=== PATIENT | female | born 1965 | race Caucasian/White ===

== ENCOUNTER 2025-04-28 22:10 | Emergency (ER) | payer OTHER, SELFPAY ==
[2025-04-28 22:59] VITALS: BP 178/82; PULSE 73; RESP 20; TEMP 36.8; O2SAT 94; BMI 30.2
--- NOTE | 2025-04-29 01:13 | ED.HEATRA ---
HPI - Head Injury General Chief complaint: Head Injury Stated complaint: headche; dizziness Time Seen by Provider: 04/29/25 01:11 Source: patient Mode of arrival: ambulatory Limitations: no limitations History of Present Illness ED Provider: HPI Narrative: Patient was healthy apparently was getting up after bending down and hit the back of the head to the open door of the freezer no loss of consciousness since then patient has been complaining of mild dizziness and headache no vomiting no seizures no memory loss Related Data Allergies Allergy/AdvReac Type Severity Reaction Status Date / Time No Known Allergies Allergy Verified 04/28/25 23:02 Review of Systems Review of Systems: Yes all other systems are reviewed and are negative [facility] Social History Social History Smoked in Last 30 Days: Yes Use of substances other than those prescribed or required for medical reasons: Yes Substance Use Type: Marijuana Substance Use Frequency: Daily Last Used Substance: Days (ago) Advance Directives: No Advance Directives Information Provided: Yes Patient : No Physical Exam Vital Signs: Vital Signs: Last Vital Signs Temp 97.7 F 04/29/25 01:45 Pulse 74 04/29/25 01:45 Resp 18 04/29/25 01:45 BP 177/85 H 04/29/25 01:45 Pulse Ox 93 04/29/25 01:45 O2 Del Method Room Air 04/29/25 01:45 BMI result Body Mass Index 30.2 Appearance: Alert. Oriented X3. No acute distress. Eyes: PERRLA, No Nystagmus HEENT: Pharynx normal. Oral Mucosa moist atraumatic normocephalic GUILHERME EAC clear Neck: Normal inspection. Neck supple. CVS: Normal heart rate and rhythm. Pulses normal. Respiratory: No respiratory distress. Equal air entry bilateral, no wheezing/rales/rhonchi Abdomen: Soft and nontender. Bowel sounds are present, no mass palpable, no CVA tenderness Skin: Skin warm and dry. Normal skin color. Normal skin turgor. Extremities: No lower extremity edema. No calf tenderness Neuro: Oriented X 3. No motor deficit. No sensory deficit.No cerebellar signs , cranial nerves II-XII intact Medications Administered Discontinued Medications Generic Name Dose Route Start Last Admin Trade Name Freq PRN Reason Stop Dose Admin Ibuprofen 600 mg 04/29/25 01:34 04/29/25 01:40 Ibuprofen 600 Mg Tablet PO 04/29/25 01:35 600 mg ONCE ONE Administration Medical Decision Making Medical Decision Making MDM Narrative: Patient after minor head injury no signs of intracranial involvement , GCS of 15 will give Tylenol/Motrin for headache Discharge Plan Discharge Clinical Impression: Closed head injury Patient Disposition: Home, Self-Care Instructions: Head Injury (ED) Additional Instructions: You had minor head injury Take Tylenol/Motrin for headache Report to the ER if vomiting/change in memory/seizure Interventions: ED Discharge Assessment Last Done: 04/29/25 01:45 Discharge Date/Time: 04/29/25 01:45 Print Language: Albanian
[2025-04-29 01:41] VITALS: BP 177/85; PULSE 74; RESP 18; TEMP 36.5; O2SAT 93
[2025-04-29 01:45] VITALS: BP 177/85; PULSE 74; RESP 18; TEMP 36.5; O2SAT 93
--- OUTSIDE RECORDS SUMMARY | 2025-04-29 01:53 | XMS_ITS | Clinical Summary ---
Author Organization [facility] [address] [facility] [address] Address [address] [place] [address] Phone Care Team Providers Care In Home Sales Consultant Name Role Phone Milly Garner MD Primary Care Provider Allergies No known active allergies Medications albuterol 2.5 mg /3 mL (0.083 %) nebulizer solution Inhale 3 mL (2.5 mg total) by mouth. 11/27/2020 Active albuterol HFA (PROAIR HFA ; PROVENTIL HFA ; VENTOLIN HFA) 90 mcg/actuation inhaler Inhale 2 puffs by mouth. 11/27/2020 Active budesonide-formo teroL (SYMBICORT) 80-4.5 mcg/actuation inhaler Inhale 2 puffs by mouth. 11/27/2020 Active emtricitabine-ri lpivirine-tenofo vir alafenamide (Odefsey) 200-25-25 mg per tablet Take 1 tablet by mouth. Active Active Problems Problem Noted Date Diagnosed Date Asthma 06/28/2024 AIDS (CMS/HCC V24, CMS/HCC V28) 06/28/2024 Overview (06/28/2024): Follows with Dr Chavez- on Odefsy Smoking 06/17/2022 Hilar mass 02/25/2019 Overview (06/28/2024): Rpt CXR was normal Colon polyp 12/12/2014 Chronic viral hepatitis C (CMS/HCC V24, CMS/HCC V28) 12/12/2014 Overview (06/28/2024): Completed 12 weeks of Epclusa- follows with Dr Perez Immunizations Name Administration Dates Next Due Influenza Quadravalent, MDCK , 0.5ml, preservative free (Flucelvax) 6mo and older 07/24/2023,05/19/2020 Influenza trivalent, with pr eservative (Fluzone; Afluria) 6mo and older 09/02/2021,07/04/2016,06/30/2015 Pneumococcal conjugate 13 va lent (Prevnar 13, PCV13) 2mo and older 06/30/2015 Tdap Tetanus diptheria acell ular pertussis (Boostrix; Adacel) 7yo and older 12/19/2016 Surgical History Surgery Date Site/Laterality Comments CHOLECYSTECTOMY PROCEDURE: LAPAROSCOPIC CHOLECYSTECT COLONOSCOPY 01/01/2016 PROCEDURE: HISTORICAL COLONOSCOPY; COMMENT: Normal colonoscopy, rpt in 5 years ( history of polyps COLONOSCOPY 2014 PROCEDURE: HISTORICAL COLONOSCOPY; COMMENT: Polyps at [facility] in [facility], report not available - told to repeat in 2 years Medical History Medical History Date Comments Aids (Cms/Hcc V24, Cms/Hcc V28) DX:AIDS ([facility]); COMMENT: diagnosed in 1998, started on meds in 2007 Asthma DX:Asthma Family history of ovarian cancer 12/12/2014 DX:Family history of ovarian cancer Colon polyp 12/12/2014 DX:Colon polyp Family History Medical History Relation Name Comments Stroke Father Breast cancer Mother Relation Name Status Comments Father Alive Mother Social History Tobacco Use Types Packs/Day Years Used Date Smoking Tobacco: Every Day Cigarettes Smokeless Tobacco: Never Alcohol Use Standard Drinks/Week Comments Yes 0 (1 standard drink = 0.6 oz pur e alcohol) Comments Unknown Sex and Gender Information Value Date Recorded Sex Assigned at Not on file Legal Sex Female 4:36 AM EST Gender Identity Not on file Sexual Orientation Not on file Obstetrics History Para Term AB IAB SAB Ectopic Multiple Livin g Live Births 1 09 18 1 Date Outcome GA Total Labor Labor/2nd/3rd Weight Sex Type Anes PTL Marylou A1 A5 Name Clin Term Last Filed Vital Signs Vital Sign Reading Time Taken Comments Blood Pressure 132/70 02/06/2024 12:03 PM EDT Pulse 94 02/06/2024 12:03 PM EDT Temperature - - Respiratory Rate - - Oxygen Saturation - - Inhaled Oxygen Concentration - - Weight 71.6 kg (157 lb 14.4 oz) 024 12:03 PM EDT Height 154.9 cm (5' 1 ) 02/06/2024 12:0 3 PM EDT Body Mass Index 29.83 02/06/2024 12:03 PM EDT Plan of Treatment Upcoming Encounters Date Type Department Care Team (Late st Contact Info) Description 11/18/2025 11:20 AM EST Appointment Radiology Department [address] [phone] Health Maintenance Due Date Last Done Comments Meningococcal ACWY Vaccine (1 - Risk 2-dose series) 1966 MMR Vaccines (1 of 2 - Risk 2-dose series) 1982 Pneumococcal Vaccine: 50+ Years (4 of 4 - PCV20 or PCV21) 08/08/2022 08/08/2017, 06/30/2015, 10/19/2011 Lung Cancer Screening (Low Dose CT) 08/27/2022 Social Influencers of Health Screening 08/27/2022 COVID-19 Vaccine ( season) 2024 07/26/2023, 11/26/2021, 01/04/2021, Additional history exists RSV Immunization Adult Patients (1 - Risk 60-74 years 1-dose series) 2024 Depression Screening 09/18/2024 Influenza Vaccine (#1) 2025 , 07/24/2023, 09/02/2021, Additional history exists Cervical Cancer Screening: HPV 08/04/2025 08/04/2020 Breast Cancer Screening 11/16/2026 11/17/19 25, 06/13/2024, 06/13/2024, Additional history exists DTaP,Tdap,and Td Vaccines (3 - Td or Tdap) 12/19/2026 12/19/2016, 10/19/2011 Cholesterol Screening (Lipid Panel) 06/17/2027 06/17/2022 Colorectal Cancer Screening: Colonoscopy 01/28/2028 01/27/2023 Hepatitis C Screening Completed 03/04/2016 Hepatitis A Vaccines Completed 06/14/2016, 01/12/2016, 12/08/2015 Hepatitis B Vaccines Completed 06/14/2016, 01/12/2016, 12/08/2015 Zoster Vaccines Completed 05/03/2022, 02/06/2018 HIB Vaccines Aged Out No longer eligi ble based on patient's age to complete this topic HPV Vaccines Aged Out No longer eligi ble based on patient's age to complete this topic IPV Vaccines Aged Out No longer eligi ble based on patient's age to complete this topic Meningococcal B Vaccine Aged Out No l onger eligible based on patient's age to complete this topic RSV Immunization Patients Under 20 months Aged Out No longer eligible based on patient's age to complete this topic Varicella Vaccines Aged Out No longer eligible based on patient's age to complete this topic Procedures Procedure Name Priority Date/Time Associated Diagnosis Comments MG MAMMO DIGITAL SCREENING W RUI BILAT Routine 11/16/2024 11:08 AM EST Encounter for screening mammogram for breast cancer COLONOSCOPY Routine 01/27/2023 LIPID PANEL Routine 06/17/2022 HPV Routine 08/04/2020 HEPATITIS C SCREENING Routine 03/04/2016 from Last 3 Months or Most Recently Relevant to Health Maintenance Results * MG Mammo Digital Screening w Rui bilat (11/16/2024 11:08 AM EST) Anatomical Region Laterality Modality Breast Bilateral Mammography 11/18/2024 5:06 PM EST Impressions 11/18/2024 5:09 PM EST 1. No mammographic evidence of malignancy 2. Scattered fibroglandular tissue BI-RADS CATEGORY: 2 - BENIGN RECOMMENDATION: Screening bilateral mammogram is recommended in 1 year. Mammo Location: [facility], [address] [place] [address], [id number], . -------- FINAL REPORT -------- Dictated By: Cristina Jarquin Dictated Date: 11/18/2024 17:06 ET Assigned Physician: Cristina Jarquin Reviewed and Electronically Signed By: Cristina Jarquin Signed Date: 11/18/2024 17:09 ET Workstation ID: [id number] Transcribed By: Self Edit Transcribed Date: 11/18/2024 17:06 ET Narrative 11/18/2024 5:09 PM EST A BILATERAL DIGITAL 3D SCREENING MAMMOGRAPHY HISTORY: Routine screening. Family history of breast cancer in mother. COMPARISON: Multiple priors dating back to 04/07/2020 Technique: Bilateral full field digital mammography (3D) was performed using standard CC and MLO projections CAD was used to evaluate this mammogram. FINDINGS: Right: No suspicious masses, groups of microcalcification or areas of architectural distortion identified. Stable typically benign parenchymal asymmetries. Left: No suspicious masses, groups of microcalcification or areas of architectural distortion identified. Stable typically benign parenchymal asymmetries. BREAST DENSITY: B - There are scattered areas of fibroglandular density. Procedure Note Cristina Jarquin MD - 11/18/2024 A BILATERAL DIGITAL 3D SCREENING MAMMOGRAPHY HISTORY: Routine screening. Family history of breast cancer in mother. COMPARISON: Multiple priors dating back to 04/07/2020 Technique: Bilateral full field digital mammography (3D) was performedusing standard CC and MLO projections CAD was used to evaluate this mammogram. FINDINGS: Right: No suspicious masses, groups of microcalcification or areas ofarchitectural distortion identified. Stable typically benign parenchymalasymmetries. Left: No suspicious masses, groups of microcalcification or areas ofarchitectural distortion identified. Stable typically benign parenchymalasymmetries. BREAST DENSITY: B - There are scattered areas of fibroglandular density. IMPRESSION: 1. No mammographic evidence of malignancy 2. Scattered fibroglandular tissue BI-RADS CATEGORY: 2 - BENIGN RECOMMENDATION: Screening bilateral mammogram is recommended in 1 year. Mammo Location: [facility], [address] [place] [address], [id number], . -------- FINAL REPORT -------- Dictated By: Cristina Jarquin Dictated Date: 11/18/2024 17:06 ET Assigned Physician: Cristina Jarquin Reviewed and Electronically Signed By: Cristina Jarquin Signed Date: 11/18/2024 17:09 ET Workstation ID: [id number] Transcribed By: Self Edit Transcribed Date: 11/18/2024 17:06 ET Result [facility] Milly Garner MD IMG BI PROCEDURES Arely l Result * Colonoscopy (01/27/2023) [facility] Colonoscopy no interpretation , abstracted Anatomical Region Laterality Modality Other Result [facility] Historical Provider HEALTH MAINTENANCE Final Result * (ABNORMAL) Lipid panel (06/17/2022) [facility] LDL/HDL Ratio 3 0 - 4 Triglycerides 142 0 - 150 mg/dL Cholesterol 219(A) 0 - 200 mg/dL HDL 88 >=40 mg/dL LDL Cholesterol 103(A) 0 - 100 mg/dL Blood Venous blood specimen / Unknown Result [facility] Historical Provider LAB BLOOD ORDERABLES Arely l Result * Cervical Cancer Screening: HPV (08/04/2020) [facility] Cervical Cancer Screening: HPV Negative abstracted Historical Provider HEALTH MAINTENANCE Final Result * Hepatitis C Screening (03/04/2016) [facility] Hepatitis C Screening abstracted Historical Provider HEALTH MAINTENANCE Final Result from Last 3 Months or Most Recently Relevant to Health Maintenance Insurance [facility] Care Teams In Home Sales Consultant Relationship Specialty Start Date End Date Milly Garner MD [address] [place] [address] PCP - General Internal Medicine 03/17/22
== END 2025-04-29 01:45 | disposition home or self-care (01) ==
LOC: HO.ED 04-29 01:51
PROVIDERS: Emergency Provider Internal Medicine
DX: S09.90XA Unspecified injury of head, initial encounter (principal); W22.8XXA Striking against or struck by other objects, initial encounter; R51.9 Headache, unspecified; R42 Dizziness and giddiness; Y93.89 Activity, other specified; Y92.030 Kitchen in apartment as the place of occurrence of the external cause; Y99.9 Unspecified external cause status
CPT/HCPCS: 99283; 99284